=== PATIENT | female | born 1965 | race Caucasian/White ===

== ENCOUNTER 2017-03-26 11:49 | Observation (INO) | payer OTHER ==
--- NOTE | ~2017-03-26 | HP ---
History And Physical [place] [address] [facility] [place]. [address] NAME: GAYE BLANTON : 67 STATUS : ADM Elza PAT#: [id number] AGE: 51 ADM/REG DATE : 03/26/17 MR#: [id number] REPORT SERV DATE: 03/26/17 DICTATED BY: NETTA ESPOSITO DATE: 03/26/17 REPORT STATUS : Draft TRANSCRIBED BY: MODLuis Armando DATE: 03/26/17 DATE OF ADMISSION: 03/26/2017 CHIEF COMPLAINT: Chest pain, worse with exertion. HISTORY OF PRESENT ILLNESS: A pleasant 51-year-old white female with no known history of CAD, reports recent episodes of exertional chest pain particularly at work at [employer] where she climbs stairs and ladders and walks any distance. She states that she was recently treated for an upper respiratory infection and generalized edema, improved with Lasix 40 daily. Currently, on amoxicillin twice daily. She reports recent fatigue. Describes her chest pain as left sternal in nature. It did not radiate elsewhere with associated nausea, diaphoresis, and dizziness. Denies shortness of breath or belching. She feels her discomfort is worse with exertion again, such as with taking ladders or climbing ladders or taking stairs and possibly worse with inspiration. She states that these symptoms are different than her acid reflux. The patient confirms a personal history of a left lower extremity DVT in 2006, treated with Coumadin. Denies history of IA, stroke, or pulmonary embolus. The patient recently treated for an upper respiratory infection this past Tuesday. Denies palpitations. No syncopal episodes. Denies PND or orthopnea. PAST MEDICAL HISTORY: 1. Anxiety. 2. GERD. 3. Denies hypertension, dyslipidemia, or diabetes. 4. Recent upper respiratory infection with generalized edema. 5. History of left lower extremity DVT in 2006. SURGERIES: None. SOCIAL HISTORY: She is , with two children. 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 She does not have an exercise routine. Denies tobacco or illicits. Rarely consumes alcohol. FAMILY HISTORY: No embolic events reported in first-degree relatives. Her father of a gunshot wound in his 20s. REVIEW OF SYSTEMS: A 14-point review of systems performed, significant for HPI including snores per report with no formal sleep study. The patient reports a recent weight gain of 5 pounds from 175-180 with a loss of weight to 178 with a recent Lasix. Otherwise, complete review of systems obtained and negative. ALLERGIES: PER PATIENT'S REPORT, NO KNOWN DRUG ALLERGIES. HOME MEDICINES: Citalopram daily, Mucinex, prednisone dose pack, Lasix 40 daily, aspirin 325 History And Physical [address] [address] NAME: GAYE BLANTON : 67 STATUS : ADM Elza PAT#: [id number] AGE: 51 ADM/REG DATE : 03/26/17 MR#: [id number] REPORT SERV DATE: 03/26/17 DICTATED BY: NETTA ESPOSITO DATE: 03/26/17 REPORT STATUS : Draft TRANSCRIBED BY: DAPHNE DATE: 03/26/17 daily, Nexium over the counter daily, amoxicillin with clavulanate 875/125 twice daily, IM black cohosh. PHYSICAL EXAMINATION: VITAL SIGNS: Blood pressure 120/81, pulse 98, respirations 20, temperature 98.4, O2 saturation 95% on room air. Height 5 feet 3 inches, weight 178 pounds. GENERAL: Cooperative, in no apparent distress. HEENT: Pupils 2 mm, sclera nonicteric. Nares patent. Moist mucous membranes. No xanthelasma. NECK: Trachea midline, no thyromegaly. No JVD. No bruits. LYMPH: No cervical lymphadenopathy. No supraclavicular lymphadenopathy. RESPIRATORY: Unlabored respirations. Breath sounds clear bilaterally to posterior auscultation. No wheezes or rhonchi. CARDIOVASCULAR: Regular rate. No murmur, rub or gallop appreciated. Extremities without edema. Pulses 2+ bilaterally. ABDOMEN: Obese, soft, nontender, nondistended, normal bowel sounds auscultated throughout. No organomegaly. SKIN: Warm, dry extremities. No pallor, or cyanosis. PSYCHIATRIC: Appropriate affect. Alert, oriented x3. LABORATORY DATA: Troponin less than 0.02, second and third pending. Potassium 3.9, BUN 20, creatinine 0.80, glucose 130, magnesium 2.5. BNP 11.7. WBC 9.1, hemoglobin 12.8, hematocrit 38.5, platelet count 387,000. EKG: Sinus rhythm. ASSESSMENT AND PLAN: 1. Chest pain with exertional component. The patient will be observed in the [facility] overnight to rule out myocardial infarction per protocol with serial enzymes, serial EKGs, and held n.p.o. after midnight on Tuesday for MPI on Tuesday. If all workup is negative, the patient will be discharged home if low risk, no ischemia. If anything suggestive of ischemia, Cardiology referral will be initiated. Otherwise, the patient will be asked to follow up with her PCP in one to two weeks with all studies being sent to that office. 2. Fatigue. Check a TSH and free T4. 3. Dizziness. Check orthostatics. 4. Gastroesophageal reflux disease. Protonix while in [facility]. JONATHAN/DAPHNE Netta Esposito MSN, PATTERN VAULT CLERK-BC / [id number] CC: Netta Esposito, MSN, PATTERN VA[employer] CLERK-[employer] History And Physical [address] [address] NAME: GAYE BLANTON : 67 STATUS : ADM Elza PAT#: [id number] AGE: 51 ADM/REG DATE : 03/26/17 MR#: [id number] REPORT SERV DATE: 03/26/17 DICTATED BY: NETTA ESPOSITO DATE: 03/26/17 REPORT STATUS : Draft TRANSCRIBED BY: CELESTEL DATE: 03/26/17 Tulio García [facility]
[2017-03-26 11:01] LABS: BASOPHILS 0.2 %; BASOPHILS ABSOLUTE 0.02 10/3/uL (0.0-0.16); EOSINOPHILS 0.2 %; EOSINOPHILS ABSOLUTE 0.02 10/3/uL (0.0-0.53); HEMATOCRIT 38.5 % (36.0-48.0); HEMOGLOBIN 12.8 g/dL (12.0-16.0); IMMATURE GRANULOCYTES 0.5 %; IMMATURE GRANULOCYTES ABSOLUTE 0.05 10/3/uL (0.0-0.11); LYMPHOCYTES 15.7 %; LYMPHOCYTES ABSOLUTE 1.43 10/3/uL (0.67-4.30); MEAN CORPUS HGB CONC 33.2 g/dL (32.0-36.0); MEAN CORPUSCULAR HEMOGLOB 29.6 pg (26.0-34.0); MEAN CORPUSCULAR VOLUME 89.1 fL (80-100); MEAN PLATELET VOLUME 9.5 fL (9.2-13.0); MONOCYTES 6.5 %; MONOCYTES ABSOLUTE 0.59 10/3/uL (0.21-1.20); NEUTROPHILS 76.9 %; NEUTROPHILS ABSOLUTE 7.02 10/3/uL (2.02-8.40); PLATELET COUNT 387 10/3/uL (150-400); RBC DISTRIBUTION WIDTH 14.3 % (12.0-16.0); RED CELL COUNT 4.32 10/6/uL (4.0-5.6); WHITE BLOOD CELLS 9.1 10/3/uL (4.5-10.5)
[2017-03-26 11:02] LABS: MANUAL DIFF NO %
[2017-03-26 11:10] LABS: INTERNATIONAL NORMAL RATI 0.9 UNITS (-); PARTIAL THROMBO TIME 23.7 SEC (22.5-37.2); PROTIME (NOT ORD) 11.6 SEC (12.0-14.5)
[2017-03-26 11:17] LABS: BUN (BLOOD UREA NITROGEN) 20 MG/DL (6-23); CALCIUM, SERUM 9.1 MG/DL (8.5-10.4); CHEST PAIN PROFILE TAT 0 Hrs 22 Mins; CHLORIDE, SERUM 103 MMOL/L (96-112); CO2 (CARBON DIOXIDE) 30 MMOL/L (24-34); GFR AFRICAN AMERICAN 100 ML/MIN (>=60); GFR NON AFRICAN AMERICAN 86 ML/MIN (>=60); GLUCOSE, SERUM 130 MG/DL (60-99); POTASSIUM, SERUM 3.9 MMOL/L (3.5-5.3); SODIUM, SERUM 137 MMOL/L (135-148); TROPONIN I <0.02 NG/ML (<0.05)
[2017-03-26] MEDS ORDERED: CELEXA20 PO (12:13)
[2017-03-26] MEDS ORDERED: [UNRECOGNIZED DRUG - OTHER] PO (12:14)
[2017-03-26] MEDS ORDERED: MEDROLPAK4 PO (12:14)
[2017-03-26] MEDS ORDERED: NEXIUM20 M1 PO (12:15)
[2017-03-26] MEDS ORDERED: BLACK COHOSH PO (12:15)
[2017-03-26] MEDS ORDERED: AUG875 PO (12:16)
[2017-03-26] MEDS ORDERED: L40 PO (12:16)
[2017-03-26] MEDS ORDERED: ASA5GR PO (12:16)
[2017-03-26] MEDS ORDERED: EXCEDRIN EXTRA1 EACH PO (12:17)
[2017-03-26 17:12] LABS: FREE T4 0.81 NG/DL (0.76-1.46)
== END 2017-03-28 15:41 | disposition home or self-care (01) ==
LOC: ER 11:49 → CDU1 12:06 → CDU2 12:42
PROVIDERS: Emergency Medicine
DX: R07.89 Other chest pain (principal); R53.83 Other fatigue; R42 Dizziness and giddiness; K21.9 Gastro-esophageal reflux disease without esophagitis; F41.9 Anxiety disorder, unspecified; Z86.718 Personal history of other venous thrombosis and embolism; Z79.82 Long term (current) use of aspirin; Z79.2 Long term (current) use of antibiotics; Z79.899 Other long term (current) drug therapy; Z90.89 Acquired absence of other organs
CPT/HCPCS: 71010; 71020; 78452; 80048; 83735; 83880; 84439; 84443; 84484; 85025; 85610; 85730; 93005; 93017; 93306; 99285; A9270-GY; A9502; G0378